=== PATIENT | female | born 1995 | race Caucasian/White ===

== ENCOUNTER 2022-01-22 12:20 | Emergency (ER) | payer BC, OTHER ==
[2022-01-22 13:18] LABS: HEMOGLOBIN 14.1 gm/dl (12.3-15.3); RED BLOOD COUNT 4.63 M/UL (4.00-5.10); WHITE BLOOD COUNT 7.3 K/UL (4.5-11.0)
[2022-01-22 13:39] LABS: BUN/CREATININE RATIO 25 (0-10)
[2022-01-22 13:40] LABS: BORDETELLA PARAPERTUSSIS Not Detected (Not Detectd); BORDETELLA PERTUSSIS Not Detected (Not Detectd); CHLAMYDIA PNEUMONIAE Not Detected (Not Detectd); CORONAVIRUS HKU1 Not Detected (Not Detectd); CORONAVIRUS NL63 Not Detected (Not Detectd); CORONAVIRUS OC43 Not Detected (Not Detectd); CORONOAVIRUS 229E Not Detected (Not Detectd); HUMAN METAPNEUMOVIRUS Not Detected (Not Detectd); INFLUENZA A Not Detected (Not Detectd); INFLUENZA B Not Detected (Not Detectd); MYCOPLASMA PNEUMONIAE Not Detected (Not Detectd); PARAINFLUENZA VIRUS 1 Not Detected (Not Detectd); PARAINFLUENZA VIRUS 2 Not Detected (Not Detectd); PARAINFLUENZA VIRUS 3 Not Detected (Not Detectd); PARAINFLUENZA VIRUS 4 Not Detected (Not Detectd); RESPIRATORY SYNCYTIAL VIRUS Not Detected (Not Detectd)
[2022-01-22 14:39] LABS: HUMAN RHINOVIRUS/ENTEROVIRUS DETECTED (Not Detectd); SARS-CoV-2 NOT DETECTED (Not Detectd)
[2022-01-22] MEDS ORDERED: REGLAN5 MG PO (17:15)
[2022-01-22] MEDS ORDERED: OMEPRAZOLE40 MG PO (17:19)
[2022-01-22] MEDS ORDERED: CARAFATE1 GM PO (17:19)
== END 2022-01-22 17:51 | disposition home or self-care (01) ==
LOC: ER1 12:20
PROVIDERS: Physician Assistant
DX: B34.1 Enterovirus infection, unspecified (principal); Z20.822 Contact with and (suspected) exposure to COVID-19
CPT/HCPCS: 76830; 80053; 81001; 83690; 83735; 84703; 85025; 87633; 96374; 96375; 99284; C9113; J2405; J2765; Q9967